=== PATIENT | male | born 1955 | race Caucasian/White ===

== ENCOUNTER 2018-06-05 08:53 | Outpatient (CLI) | payer OTHER ==
--- NOTE | 2018-06-05 19:00 | Diagnostic Imaging Report ---
WARREN MO (ESEQUIEL) - OP [facility] [id number] [id number] Report Submission Date: Jun 05, 2018 9:58:23 AM CDT Patient Study Name: MINERVA RAMSEY Date: Jun 05, 2018 9:05:00 AM CDT Modality Type: DX Gender: M Description: FOOT 3 VIEWS OR MORE : 51 Institution: [facility] Physician: WARREN MO (ESEQUIEL) - OP Examination: Plain film left foot History: PAIN IN LEFT FOOT, REDNESS ON DORSAL SURFACE, NO KNOWN INJURY, PT STATES HX OF ARTHRITIS Findings: 3 views of the left foot demonstrates oblique lucency involving the mid aspect of the 4th metatarsal. No other fracture or dislocation. No soft tissue swelling. No joint effusion. Impression: 4th metatarsal fracture. Electronically signed on Jun 05, 2018 9:58:23 AM CDT by: Landry GRIDER
== END 2018-06-05 08:55 ==
LOC: RAD 08:53
PROVIDERS: ATTEND Nurse Practitioner Family
DX: S92.342A Displaced fracture of fourth metatarsal bone, left foot, initial encounter for closed fracture (principal)
CPT/HCPCS: 73630